=== PATIENT | female | born 1955 | race Two or more races ===

== ENCOUNTER 2024-11-10 08:45 | Outpatient (AMB) | payer MEDICARE, MEDICAID, SELFPAY ==
--- NOTE | 2024-11-10 09:04 | ORTHONT_ITS ---
Vital signs 11/10/24 09:06 Height 1.52 m Height Method Stated Weight 98.004 kg Weight Measurement Method Standing Scale BMI 42.2 BP 153/93 H Blood Pressure Source Automatic Cuff Blood Pressure Location Right Upper Arm Position Sitting Respiration 18 Pulse 85 Pulse Source Monitor Temp 97.9 F Temp Source Temporal Artery Scan Pulse Oximetry (%) 93 L Oxygen Delivery Method Room Air Med/Allergies Allergies & Medications Allergies acetaminophen (From Vicodin) Allergy (Verified 11/10/24 09:10) codeine Allergy (Verified 11/10/24 09:10) hydrocodone (From Vicodin) Allergy (Verified 11/10/24 09:10) Medication Reconciliation Unobtainable 11/10/24 [History Confirmed 11/10/24] Exam Exam Breathing is nonlabored. Patient has a normal mood and affect. Bilateral extremities were evaluated and demonstrates sensation intact to light touch. Palpable pedal pulses are present. No significant edema is present. Bilateral hips were examined. The patient has no pain with log roll of the hips. Internal rotation to 30 degrees and external rotation to 30 degrees is painless. Negative FADIR. Left knee was examined today. The left knee is in reasonable alignment. Range of motion from 0-120 degrees. Knee is stable to varus and valgus as well as AP translation with <5mm. Patient has a negative McMurrays. There is no pain with patellofemoral compression and no crepitus noted. The knee is nontender to palpation. The right knee was also examined. The right knee is in varus alignment. Range of motion from 0-115 degrees. Knee is stable to varus and valgus as well as AP translation with <5mm. Patient has a negative McMurrays. There is no pain with patellofemoral compression and no crepitus noted. The knee is tender to palpation medially. She does have a lot of skin folds from her obesity Assessment and Plan Problem List (1) Arthritis of right knee: Status: Acute Plan: 61-year-old female with severe right knee arthritis of significant severity. We would like better weightbearing x-rays but the previous ones of show complete obliteration of the medial joint space. She would like a right knee injection today. I would like for her to lose weight prior to proceeding with surgery. She just started on zepbound recently Recommend knee cortisone injection as patient would like to proceed with conservative treatment at this time. The risks and benefits of the procedure were reviewed with the patient and patient gave verbal consent to continue with the procedure. Procedure: performed by Dr. Dawn Using sterile technique the Right knee was thoroughly prepped with alcohol, and approximately 1 cc of Kenalog 40 mg/mL and 4 cc of 1% lidocaine was injected without resistance into the medial tibial femoral joint space. The patient tolerated the procedure. Advanced Care Planning Discussion Advance care planning discussed with:: patient Office Procedures GNS Level of Care Nursing/Assessment Patient Status: Initial/New Patient Nursing Assessment/Reassesment: Medication Reconciliation, Update PMH in EMR and Vital Signs Coordination of Care: Complex Care and Chronic Disease 1-5, Education Complex Pt/Fam, Consent,records obtained, informed consent, 1 Ins Authorization, Lab and Imaging orders, Results/Orders obtained and Staff clarify orders Special Needs: Language special needs New Patient Charge New Patient Point Assignment: [id number] New Patient Point Charge: TRANSCRIPT CLERK Level 4 (8158-3165) Surgical Proc/IM SQ injection Major Surgical Procedure: Yes (KNEE INJECTION ) Medication Given Medication Given Medication Given: Yes Documented Dose Given: 4 Route: Infiitration Medication Given Medication Given Medication Given: Yes Documented Dose Given: 1 Route: Infiitration Office Meds Xylocaine 10 mg/mL (1 %) injection solution Performing Provider: Solis Dawn MD Performing Location: [facility] Administered by: Solis Dawn MD on 11/10/24 11:27 Dose Route Admin Location Dispensed Lot Number Expiration Date [facility] [employer] 20 mL Infiltration 20 mL [id number] [facility] triamcinolone acetonide 40 mg/mL suspension for injection Performing Provider: Solis Dawn MD Performing Location: [facility] Administered by: Solis Dawn MD on 11/10/24 11:27 Dose Route Admin Location Dispensed Lot Number Expiration Date [facility] [employer] 40 mg intra-articular RIGHT KNEE 1 mL [id number] 01/19/26 5420-4183-0 1 [employer] [facility] [place] Intake Visit Data Collection New Patient or Established: New Patient (never been to [facility]) Reason for Visit:: RIGHT KNEE OSTEOARTHRITIS Seen by Clinical Staff ONLY (RN/MA): No Court Registry Officer Required: No PCP or OBGYN visit in last 3 months: Yes Hx Now: No Do You Feel Safe at Home: Yes Authorities Contacted: N/A Questionairres Past Medical History Past Medical History Have you ever been diagnosed with any of the following: Cardiology Problems Hypercholesterolemia: Yes Hypertension: Yes Subjective Visit Visit for: new patient, knee (RIGHT) and x-rays Immunization / Flu Flu Vaccine in the Last 12 Months: Yes Flu Vaccine Exclusion Criteria: Already Received History of Present Illness Chief complaint: bilateral knee pain Renu is a pleasant 69-year-old female with bilateral knee pain for years, right worse than left. She has been using a walker for the past month. She has had over 10 injections with little relief. She has tried physical therapy. She has tried meloxicam and Tylenol arthritis. Patient has osteoporosis and has been taking alendronate for over a year. She started Zepbound last Thursday for weight loss. BMI is 42.2%. Personal History Occupation: NONE Pain Pain level (0-10): 8 Pain duration: CONSTANT Pain location: inside (medial), outside (lateral) and anterior Pain quality: sharp, dull and aching Pain timing: night, increases with activity and stairs Associated signs & symptoms: numbness and weakness Ambulatory data Ambulatory device: walker Treatments Number of previous injections: 10 Improvement with previous injections: No Improvement with PT: No Improvement with NSAIDS: no Review of Systems Review of Systems: All systems negative unless otherwise noted in HPI.
[2024-11-10 09:06] VITALS: BP 153/93; PULSE 85; RESP 18; TEMP 36.6; O2SAT 93; BMI 42.2
--- NOTE | 2024-11-10 09:09 | XR_ITS ---
Examination: Bilateral knees 2 views Right lateral knee left lateral knee 2 views Right axial knee left axial knee 2 views TECHNIQUE: Bilateral AP knees standing single view, bilateral PA knees standing single view 30 degrees flexion Standing right lateral knee left lateral knee Right axial knee left axial knee 2 views total 6 views Exam date and time: November 10, 2024 0929 hours INDICATIONS: Bilateral knee pain beginning 2 years ago more severe right knee FINDINGS: Significant osteopenia Severe narrowing [id number] medial joint space right knee Advanced osteoarthritis right patellofemoral joint Small knee effusion Advanced narrowing medial joint space left knee Moderate osteoarthritis lateral patellofemoral joint No fracture involving either knee No patellar dislocation IMPRESSION: Severe narrowing [id number] medial joint space right knee Advanced osteoarthritis right patellofemoral joint Advanced narrowing medial joint space left knee
== END 2024-11-10 09:26 | disposition home or self-care (01) ==
PROVIDERS: PCP Physician Assistant; Referring Provider Physician Assistant; Supervising Provider Orthopaedic Surgery Adult Reconstructive Orthopaedic Surgery; Visit Provider Orthopaedic Surgery Adult Reconstructive Orthopaedic Surgery
DX: M17.11 Unilateral primary osteoarthritis, right knee (principal); M25.862 Other specified joint disorders, left knee; I10 Essential (primary) hypertension; E78.00 Pure hypercholesterolemia, unspecified
CPT/HCPCS: 20610; 73564; 99204; J3301; J3490; G0463

== ENCOUNTER 2025-02-07 09:00 | Outpatient (AMB) | payer MEDICARE, MEDICAID, SELFPAY ==
[2025-02-07 09:17] VITALS: BP 138/84; PULSE 66; RESP 18; TEMP 36.3; O2SAT 98; BMI 39.2
--- NOTE | 2025-02-07 09:17 | ORTHONT_ITS ---
Vital signs 02/07/25 09:17 Height 1.52 m Height Method Stated Weight 90.492 kg Weight Measurement Method Standing Scale BMI 39.2 BP 138/84 H Blood Pressure Source Automatic Cuff Blood Pressure Location Right Upper Arm Position Sitting Respiration 18 Pulse 66 Pulse Source Monitor Temp 97.3 F Temp Source Temporal Artery Scan Pulse Oximetry (%) 98 Oxygen Delivery Method Room Air Med/Allergies Allergies & Medications Allergies acetaminophen (From Vicodin) Allergy (Verified 02/07/25 09:21) codeine Allergy (Verified 02/07/25 09:21) hydrocodone (From Vicodin) Allergy (Verified 02/07/25 09:21) Medication Reconciliation Unobtainable 11/10/24 [History Confirmed 02/07/25] Exam Exam Breathing is nonlabored. Patient has a normal mood and affect. Bilateral extremities were evaluated and demonstrates sensation intact to light touch. Palpable pedal pulses are present. No significant edema is present. Bilateral hips were examined. The patient has no pain with log roll of the hips. Internal rotation to 30 degrees and external rotation to 30 degrees is painless. Negative FADIR. Left knee was examined today. The left knee is in reasonable alignment. Range of motion from 0-120 degrees. Knee is stable to varus and valgus as well as AP translation with <5mm. Patient has a negative McMurrays. There is no pain with patellofemoral compression and no crepitus noted. The knee is nontender to palpation. The right knee was also examined. The right knee is in varus alignment. Range of motion from 0-115 degrees. Knee is stable to varus and valgus as well as AP translation with <5mm. Patient has a negative McMurrays. There is no pain with patellofemoral compression and no crepitus noted. The knee is tender to palpation medially. She does have a lot of skin folds from her obesity Bilateral knee x-rays demonstrate significant joint space narrowing on the right. There is complete obliteration of the medial joint space Assessment and Plan Problem List (1) Arthritis of right knee: Status: Acute Plan: 61-year-old female with severe right knee arthritis of significant severity. X- rays demonstrate significant joint space narrowing medially Bilaterally. We will do a cortisone injection on the left side as this is bothering her. The right side is worse and she would like to get this replaced as she is tried significant weight loss, with over 10 injections and formal physical therapy. Recommend knee cortisone injection as patient would like to proceed with conservative treatment at this time. The risks and benefits of the procedure were reviewed with the patient and patient gave verbal consent to continue with the procedure. Procedure: performed by Dr. Dawn Using sterile technique the left knee was thoroughly prepped with alcohol, and approximately 1 cc of Kenalog 40 mg/mL and 4 cc of 1% lidocaine was injected without resistance into the medial tibial femoral joint space. The patient tolerated the procedure. We will plan for surgery on the right and we are not injecting that side as this will delay surgery The nature and purpose of the total knee replacement, alternative method(s) of treatment, the material risks involved, and the possibility of complications were fully explained to the patient. The patient does NOT have any of the following contraindications to TKA: - Active infection of the knee joint, OR - Active systemic bacteremia, OR - Active skin infection or open wound at surgical site, OR - Neuropathic arthritis, OR - Severe, rapidly progressive neurological disease, OR - Severe medical condition that makes risks of surgery outweigh the potential benefit The patient was told the most common risks and complications associated with a total knee replacement include, but are not limited to: blood clots in the leg, fatal pulmonary embolism, dislocation of the prosthesis, intraoperative and postoperative fractures of the femur or tibia, infection, failure of the prosthesis or grafting materials, complications from anesthesia, reactions to blood transfusions, postoperative leg length inequality, instability of the knee replacement, nerve damage or injury, vascular injury, delayed wound healing, infection, other injury or even . In addition, there are risks associated with anesthesia given during this operation. Also, the patient was told that after undergoing a total knee replacement there may still be persistent pain or disability. The patient was informed that the success of this operation in part depends upon the mechanical devices which are going to be implanted and that these devices can fail or malfunction, and may need to be repaired or replaced and there are no guarantees as to the longevity of this device or its parts and that it or its parts could fail prematurely. The patient was also notified that during the course of surgery, there may be a need to use bone graft from donors, and that any bone graft used will be carefully screened for communicable diseases, including AIDS, hepatitis, Fred-Creutzfeldt, or other diseases, but despite the screening procedures, there is a small chance that they could contract one of these diseases. Finally, the patient was asked to follow completely and fully with all advice and recommended treatments, and that recovery and ultimate outcome are affected by their compliance with recommended treatment. We discussed the risks, benefits and treatment alternatives, and the patient is interested in proceeding with surgery. We will try to set this up as expeditiously as possible. Advanced Care Planning Discussion Advance care planning discussed with:: patient Office Procedures GNS Level of Care Nursing/Assessment Patient Status: Established Patient Nursing Assessment/Reassesment: Medication Reconciliation, Update PMH in EMR and Vital Signs Coordination of Care: Complex Care and Chronic Disease 1-5, Education Complex Pt/Fam, Consent,records obtained, informed consent, Lab and Imaging orders, Results/Orders obtained and Staff clarify orders Established Patient Charge Established Patient Point Assignment: 110 Established Patient Point Charge: EP Level 3 (80-115) Surgical Proc/IM SQ injection Major Surgical Procedure: Yes (KNEE INJECTION ) Medication Given Medication Given Medication Given: Yes Documented Dose Given: 4 Route: Infiitration Medication Given Medication Given Medication Given: Yes Documented Dose Given: 1 Route: Infiitration Office Meds Xylocaine 10 mg/mL (1 %) injection solution Performing Provider: Solis Dawn MD Performing Location: [facility] Administered by: Solis Dawn MD on 02/07/25 10:14 Dose Route Admin Location Dispensed Lot Number Expiration Date [facility] [employer] 20 mL Infiltration 20 mL [id number] [employer] triamcinolone acetonide 40 mg/mL suspension for injection Performing Provider: Solis Dawn MD Performing Location: [facility] Administered by: Solis Dawn MD on 02/07/25 10:14 Dose Route Admin Location Dispensed Lot Number Expiration Date [facility] [employer] 40 mg intra-articular KNEE 1 mL [id number] 08/21/26 8077-7881-60 [facility] [place] Intake Visit Data Collection New Patient or Established: Established Patient (seen at [facility] within 3 years) Reason for Visit:: 3 MONTH KNEE INJECTION Seen by Clinical Staff ONLY (RN/MA): No Verbal consent obtained for Telemed visit?: No 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 Required: Yes PCP or OBGYN visit in last 3 months: Yes Hx Now: No Do You Feel Safe at Home: Yes Authorities Contacted: N/A Questionairres Past Medical History Past Medical History Have you ever been diagnosed with any of the following: Cardiology Problems Hypercholesterolemia: Yes Hypertension: Yes Subjective Visit Visit for: follow up visit and knee Immunization / Flu Flu Vaccine in the Last 12 Months: Yes Flu Vaccine Exclusion Criteria: Already Received History of Present Illness Chief complaint: 3 MONTH FOLLOW UP KNEE INJECTIONS Renu is a pleasant 69-year-old female with bilateral knee pain for years, right worse than left. She has been using a walker for the past month. She has had over 10 injections with little relief. She has tried physical therapy. She has tried meloxicam and Tylenol arthritis. Patient has osteoporosis and has been taking alendronate for over a year. She started Zepbound last Thursday for weight loss. BMI is 39.2. She has been losing weight very rapidly. Personal History Occupation: DISABLED Red flag PMH: BMI BMI Counceling provided: Yes Pain Pain level (0-10): 10 Pain duration: ALL DAY Pain location: inside (medial), outside (lateral), anterior and posterior Pain quality: sharp, dull and aching Pain timing: night, increases with activity and stairs Associated signs & symptoms: weakness Ambulatory data Ambulatory device: walker Treatments Number of previous injections: 10 Improvement with previous injections: Yes Improvement with PT: No Improvement with NSAIDS: no Review of Systems Review of Systems: All systems negative unless otherwise noted in HPI.
== END 2025-02-07 09:53 | disposition home or self-care (01) ==
LOC: HODSRG 09:00
PROVIDERS: PCP Physician Assistant; Referring Provider Physician Assistant; Supervising Provider Orthopaedic Surgery Adult Reconstructive Orthopaedic Surgery; Visit Provider Orthopaedic Surgery Adult Reconstructive Orthopaedic Surgery
DX: M25.562 Pain in left knee (principal); M25.561 Pain in right knee; M17.11 Unilateral primary osteoarthritis, right knee; I10 Essential (primary) hypertension; E78.00 Pure hypercholesterolemia, unspecified
CPT/HCPCS: 20610; 99213; J3301; J3490; G0463

== ENCOUNTER 2025-04-13 10:21 | Outpatient (AMB) | payer MEDICARE, MEDICAID, SELFPAY ==
--- NOTE | 2025-04-13 10:35 | ORTHONT_ITS ---
Vital signs 04/13/25 10:46 Height 1.52 m Height Method Stated Weight 88.025 kg Weight Measurement Method Standing Scale BMI 38.0 BP 138/73 H Blood Pressure Source Automatic Cuff Blood Pressure Location Left Upper Arm Position Sitting Respiration 19 Pulse 158 H Pulse Source Monitor Temp 97.9 F Temp Source Temporal Artery Scan Pulse Oximetry (%) 94 L Oxygen Delivery Method Room Air Med/Allergies Allergies & Medications Allergies acetaminophen (From Vicodin) Allergy (Verified 04/13/25 10:47) codeine Allergy (Verified 04/13/25 10:47) hydrocodone (From Vicodin) Allergy (Verified 04/13/25 10:47) Medication Reconciliation Unobtainable 11/10/24 [History Confirmed 04/13/25] Exam Exam Breathing is nonlabored. Patient has a normal mood and affect. Bilateral extremities were evaluated and demonstrates sensation intact to light touch. Palpable pedal pulses are present. No significant edema is present. Bilateral hips were examined. The patient has no pain with log roll of the hips. Internal rotation to 30 degrees and external rotation to 30 degrees is painless. Negative FADIR. Left knee was examined today. The left knee is in reasonable alignment. Range of motion from 0-120 degrees. Knee is stable to varus and valgus as well as AP translation with <5mm. Patient has a negative McMurrays. There is no pain with p atellofemoral compression and no crepitus noted. The knee is nontender to palpation. The right knee was also examined. The right knee is in varus alignment. Range of motion from 0-115 degrees. Knee is stable to varus and valgus as well as AP translation with <5mm. Patient has a negative McMurrays. There is no pain with patellofemoral compression and no crepitus noted. The knee is tender to palpati on medially. She does have a lot of skin folds from her obesity Bilateral knee x-rays demonstrate significant joint space narrowing on the right. There is complete obliteration of the medial joint space Assessment and Plan Problem List (1) Arthritis of right knee: Status: Acute Plan: 61-year-old female with severe right knee arthritis of significant severity. X- rays demonstrate significant joint space narrowing medially Bilaterally. We will do a cortisone injection on the left side as this is bothering her. The right side is worse and she would like to get this replaced as she is tried significant weight loss, with over 10 injections and formal physical therapy. The nature and purpose of the total knee replacement, alternative method(s) of treatment, the material risks involved, and the possibility of complications were fully explained to the patient. The patient does NOT have any of the following contraindications to TKA: - Active infection of the knee joint, OR - Active systemic bacteremia, OR - Active skin infection or open wound at surgical site, OR - Neuropathic arthritis, OR - Severe, rapidly progressive neurological disease, OR - Severe medical condition that makes risks of surgery outweigh the potential b enefit The patient was told the most common risks and complications associated with a total knee replacement include, but are not limited to: blood clots in the leg, fatal pulmonary embolism, dislocation of the prosthesis, intraoperative and postoperative fractures of the femur or tibia, infection, failure of the prosthesis or grafting materials, complications from anesthesia, reactions to blood transfusions, postoperative leg length inequality, instability of the knee replacement, nerve damage or injury, vascular injury, delayed wound healing, infection, other injury or even . In addition, there are risks associated with anesthesia given during this operation. Also, the patient was told that after undergoing a total knee replacement there may still be persistent pain or disability. The patient was informed that the success of this operation in part depends upon the mechanical devices which are going to be implanted and that these devices can fail or malfunction, and may need to be repaired or replaced and there are no guarantees as to the longevity of this device or its parts and that it or its parts could fail prematurely. The patient was also notified that during the course of surgery, there may be a need to use bone graft from donors, and that any bone graft used will be carefully screened for communicable diseases, including AIDS, hepatitis, Fred-Creutzfeldt, or other diseases, but despite the screening procedures, there is a small chance that they could contract one of these diseases. Finally, the patient was asked to follow completely and fully with all advice and recommended treatments, and that recovery and ultimate outcome are affected by their compliance with recommended treatment. We discussed the risks, benefits and treatment alternatives, and the patient is interested in proceeding with surgery. We will try to set this up as expeditiously as possible. Advanced Care Planning Discussion Advance care planning discussed with:: patient Office Procedures GNS Level of Care Nursing/Assessment Patient Status: Established Patient Nursing Assessment/Reassesment: Medication Reconciliation, Update PMH in EMR and Vital Signs Coordination of Care: Complex Care and Chronic Disease 1-5, Education Complex Pt/Fam, Consent,records obtained, informed consent, Results/Orders obtained and Staff clarify orders Special Needs: Language special needs Established Patient Charge Established Patient Point Assignment: 95 Established Patient Point Charge: EP Level 3 (80-115) MA Intake Visit Data Collection New Patient or Established: Established Patient (seen at [facility] within 3 years) Reason for Visit:: REQ SX/FU MEDICAL AND CARDIAC CLEARANCE Seen by Clinical Staff ONLY (RN/MA): No Verbal consent obtained for Telemed visit?: No Tunneller Required: Yes PCP or OBGYN visit in last 3 months: Yes Hx Now: No Do You Feel Safe at Home: Yes Authorities Contacted: N/A Questionairres Past Medical History Past Medical History Have you ever been diagnosed with any of the following: Cardiology Problems Hypercholesterolemia: Yes Hypertension: Yes Subjective Visit Visit for: follow up visit and knee Immunization / Flu Flu Vaccine in the Last 12 Months: Yes Flu Vaccine Exclusion Criteria: Already Received History of Present Illness Chief complaint: 3 MONTH FOLLOW UP KNEE INJECTIONS Renu is a pleasant 69-year-old female with bilateral knee pain for years, right worse than left. She has been using a walker for the past month. She has had over 10 injections with little relief. She has tried physical therapy. She has tried meloxicam and Tylenol arthritis. Patient has osteoporosis and has been taking alendronate for over a year. She started Zepbound last Thursday for weight loss. BMI is 39.2. Personal History Occupation: DISABLED Red flag PMH: BMI BMI Counceling provided: Yes Pain Pain level (0-10): 10 Pain duration: ALL DAY Pain location: inside (medial), outside (lateral), anterior and posterior Pain quality: sharp, dull and aching Pain timing: night, increases with activity and stairs Associated signs & symptoms: weakness Ambulatory data Ambulatory device: walker Treatments Number of previous injections: 10 Improvement with previous injections: Yes Improvement with PT: No Improvement with NSAIDS: no Review of Systems Review of Systems: All systems negative unless otherwise noted in HPI.
[2025-04-13 10:46] VITALS: BP 138/73; PULSE 158; RESP 19; TEMP 36.6; O2SAT 94; BMI 38.0
== END 2025-04-13 10:48 | disposition home or self-care (01) ==
LOC: HODSRG 10:21
PROVIDERS: PCP Physician Assistant; Referring Provider Physician Assistant; Supervising Provider Orthopaedic Surgery Adult Reconstructive Orthopaedic Surgery; Visit Provider Orthopaedic Surgery Adult Reconstructive Orthopaedic Surgery
DX: M17.11 Unilateral primary osteoarthritis, right knee (principal); M25.562 Pain in left knee; M25.561 Pain in right knee; M81.0 Age-related osteoporosis without current pathological fracture; I10 Essential (primary) hypertension; E78.00 Pure hypercholesterolemia, unspecified; E66.9 Obesity, unspecified; Z71.3 Dietary counseling and surveillance; Z68.38 Body mass index [BMI] 38.0-38.9, adult
CPT/HCPCS: 99213; G0463

== ENCOUNTER → 2025-04-21 | Outpatient (CLI) | payer MEDICARE, MEDICAID, SELFPAY ==
--- NOTE | 2025-04-21 12:00 | XR_ITS ---
Examination: CT right lower extremity, without contrast. 2-D sagittal reconstructions. 2-D coronal reconstructions. 3-D reconstructions. Date and time of exam:April 21, 2025 1321 hours INDICATIONS: Diagnosis unilateral right knee osteoarthritis, knee pain several years CTDI: vol (mGy):33.5 DLP: (mGycm):1369 Technique: Multiple 1.25 mm axial sections of the right lower extremity without intravenous contrast have been obtained. 2-D sagittal and coronal reconstructions have been obtained. 3-D reconstructions have been obtained. Low dose protocols were performed. One or more of the following dose reduction techniques were used; automated exposure control, adjustment of the mA and/or KV according to patient size, use of iterative reconstruction technique. Findings: No right hip fracture or dislocation Mild narrowing right hip joint No avascular necrosis Severe narrowing medial joint space right knee Significant osteoarthritis lateral patellofemoral joints No fractures IMPRESSION: Advanced tricompartment osteoarthritis right knee including severe narrowing medial joint space
== END | disposition home or self-care (01) ==
PROVIDERS: PCP Physician Assistant; Referring Provider Orthopaedic Surgery Adult Reconstructive Orthopaedic Surgery; Visit Provider Orthopaedic Surgery Adult Reconstructive Orthopaedic Surgery
DX: M17.11 Unilateral primary osteoarthritis, right knee (principal); M25.861 Other specified joint disorders, right knee
CPT/HCPCS: 73700

== ENCOUNTER 2025-04-27 08:20 | Day surgery (SDC) | payer MEDICARE, MEDICAID, SELFPAY ==
--- NOTE | 2025-04-21 06:55 | EKG_ITS ---
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
[2025-04-21 09:44] VITALS: BMI 39.3
[2025-04-21 12:06] LABS: Basophils # (Auto) 0.1 Thou/mm3 (0.0-0.2); Basophils % (Auto) 1 % (0-2.5); Eosinophils # (Auto) 0.3 Thou/mm3 (0.0-0.5); Eosinophils % (Auto) 5 % (0-10); Hematocrit 42.0 % (36.0-46.0); Hemoglobin 13.4 g/dL (12.0-16.0); Immature Granulocytes Auto 0.03 Thou/mm3 (0.00-0.00); Lymphocytes # (Auto) 1.6 Thou/mm3 (1.0-4.8); Lymphocytes % (Auto) 26 % (10-50); Mean Corpuscular HGB Conc 31.9 g/dl (31.0-37.0); Mean Corpuscular Hemoglobin 29.3 pg (25.0-35.0); Mean Corpuscular Volume 92 fL (80-100); Monocytes # (Auto) 0.6 Thou/mm3 (0.0-0.8); Monocytes % (Auto) 9 % (0-12); Neutrophils # (Auto) 3.5 Thou/mm3 (1.8-7.7); Neutrophils % (Auto) 59 % (37-80); Nucleated Red Blood Cell # 0.00 Thou/mm3 (0.00-0.00); Nucleated Red Blood Cell % 0 /100 WBC (0); Platelet Count 185 Thou/mm3 (140-440); RDW Standard Deviation 45.7 fL (36.4-46.3); Red Blood Count 4.57 Miln/mm3 (4.00-5.20); White Blood Count 6.0 Thou/mm3 (3.6-11.0)
[2025-04-21 12:15] LABS: Alanine Aminotransferase 15 U/L (10-49); Albumin, Serum 4.4 gm/dL (3.4-4.8); Albumin/Globulin Ratio 1.7 (1.2-2.2); Alkaline Phosphatase 80 U/L (46-116); Anion Gap 10 (7-16); Aspartate Amino Transferase 25 U/L (0-34); BUN/Creatinine Ratio 17 Ratio (12-20); Bilirubin,Total 0.6 mg/dL (0.3-1.2); Blood Urea Nitrogen 15 mg/dL (9-23); Calcium 9.3 mg/dL (8.3-10.6); Calcium (Corrected) 9.3 mg/dL (8.5-10.1); Carbon Dioxide 27.6 mMol/L (20.0-31.0); Chloride 108 mMol/L (98-107); Creatinine (Component) 0.9 mg/dL (0.6-1.3); Estimated Creatinine Clearance 57.9 mL/min (>60); Globulin 2.6 gm/dL (2.3-3.5); Glucose 101 mg/dL (74-106); Osmolality,Calculated 291 (275-295); Potassium 4.8 mMol/L (3.4-5.1); Sodium 146 mMol/L (136-145); Total Protein 7.0 gm/dL (5.7-8.2); eGFR > 60 See Note
[2025-04-21 12:23] LABS: INR 1.0 (0.9-1.3); Partial Thromboplastin Time 28.4 Seconds (22.0-36.0); Prothrombin Time 10.9 Seconds (9.0-12.2)
[2025-04-27] VITALS (13 sets, daily range): BP systolic 134–160; BP diastolic 78–101; PULSE 59–81; RESP 12–20; TEMP 36.1–37.4; O2SAT 95–100; BMI 39.6
[2025-04-27] MEDS: PREGABALIN 75 MG CAPSULE PO (09:05)
[2025-04-27] MEDS: ACETAMINOPHEN 325 MG TABLET 650 MG PO (09:05)
[2025-04-27] MEDS: MELOXICAM 7.5 MG TABLET PO (09:05)
--- NOTE | 2025-04-27 13:58 | PD.SUROPNT ---
Date of Procedure 04/27/25 Pre Op Diagnosis right knee osteoarthritis Post Op Diagnosis right knee osteoarthritis Procedure right total knee replacement Findings full thickness cartilage loss and osteophytes Procedure Description Indication: The patient is a 69 year old who has a long history of right knee pain. X-rays show degenerative arthritis involving the knee. Over the past several years the patient has had increasing pain, progressive limitation in function. He has failed conservative measures including activity modification, physical therapy, injections, anti-inflammatories, and assistive devices. After a lengthy discussion of the risks and benefits, the patient presents now for total knee replacement. The nature and purpose of the total knee replacement, alternative method(s) of treatment, the material risks involved, and the possibility of complications were fully explained to the patient. The patient was told the most common risks and complications associated with a total knee replacement include, but are not limited to blood clots in the leg, fatal pulmonary embolism, dislocation of the prosthesis, intraoperative and postoperative fractures of the femur or tibia, infection, failure of the prosthesis or grafting materials, complications from anesthesia, reactions to blood transfusions, postoperative leg length inequality, instability of the knee replacement, nerve damage or injury, vascular injury, delayed wound healing, infections, other injury or even . In addition, there are risks associated with anesthesia given during this operation, temporary or permanent numbness on the skin lateral to the incision can be a complication unique to total knee surgery, and kneeling can be painful after knee replacement surgery. Also, the patient was told that after undergoing a total knee replacement there may still be pain or disability. We discussed with the patient that we will be using a robot-assisted technology. We discussed that there is a possibility of converting to manual instrumentation. The patient was informed that the success of this operation in part depends upon the mechanical devices which are going to be implanted and that these devices can fail or malfunction, and may need to be repaired or replaced and there are no guarantees as to the longevity of this device or its part and that it or its parts could fail prematurely. Finally, the patient was asked to follow completely and fully with all advice and recommended treatments, and that recovery and ultimate outcome are affected by their compliance with recommended treatment. Surgical technique: Patient was marked and consented in the pre-operative area. The patient was brought to the operating room and placed on the operating table in a supine position. Prior to positioning, a timeout procedure was performed between the surgeon, the anesthesiologist, and the nursing staff where the patient and the operative side were identified and confirmed. After adequate general anesthetic was obtained, the right lower extremity was prepped and draped in the usual sterile fashion. A weight based dose of Cefazolin were administered within 1 hour prior to incision. The robot was preregistered and calirated before the incision. The extremity was exsanguinated with an esmarch badge and tourniquet inflated to 250mmHg. A midline incision was made. A median parapatellar arthrotomy was made. The patella was subluxed laterally. A medial release was performed to expose the medial tibia. His femoral and tibial pins were placed through an intra incisional manner for both cases. Every effort was made to ensure that the distalmost aspect of the pin was hung in the second cortex. The arrays were then tightened several times to ensure that it was fixed for the remainder of the case. Both femoral and tibial checkpoints were then placed. We then went through the registration process of the bone. We then assessed the knee deformity and attempted to correct it. We also used the robot to aid in judging laxity in both extension and flexion. Final based on laxity and alignment we changed the preoperative assessment to obtain proper proper implant positioning and to correct deformity. Attention was then placed to the tibia. We made a tibial cut using the robot ensuring that both the MCL and the patella tendon were protected with retractors. We then went to the femur and made the posterior cut followed by the anterior cut and the anterior chamfer. The bone was then removed and we made a distal femur cut and a posterior chamfer cut. We verified all cuts. A trial reduction was performed with a size 3 femoral component and a size 3 keeled tibial component. The patella tracked centrally, and no lateral retinacular release was necessary. The trial implants were removed. The arrays, pins, and checkpoints were all removed. We performed a verification that all pins were removed. The cut bone surfaces were lavaged. A size 3 right femoral component, a size 3 keeled tibial component were impacted into position. The knee was felt to be well balanced in the sagittal and coronal plane. The final 3x13 mm cruciate-substituting articular insert was impacted into the tibial tray. The knee was brought out to full extension, flexed up to 120 degrees. It was stable to varus and valgus stress and appropriately balanced in flexion and extension. The wounds were copiously irrigated following deflation of tourniquet. The medial retinaculum was reapproximated with #1 vicryl and quill. The subcutaneous tissues were closed with 0 and 2-0 interrupted Vicryl. The skin was closed with 3-0 Monofilament V loc suture. A sterile dressing was applied. The patient was transferred to a bed and brought to recovery in stable condition. The patient tolerated the procedure well. There were no intraoperative complications. Sponge and needle counts were correct times 2. As the attending surgeon, Paula cooper I was present and performed the entire operation. Grafts/Implants Size 3 CR Femur Size 3 Tibia 13mm poly CS Anesthesia MAC Implants angela Pathology / specimen None Pathology comment: none Estimated Blood Loss 150 Condition Stable Disposition same day Surgeon Solis Dawn MD Surgical Staff Operation Date: 04/27/25 13:45 Case Staff PHOTOGRAPHIC HAND DEVELOPER: Anna Flores RN First Assistant: Jes Medrano
--- NOTE | 2025-04-27 14:04 | XR_ITS ---
Examination: Right knee 2 views Technique one AP lateral right knee 2 views Date and time: April 27, 2025 1450 hours INDICATIONS: Postop right knee replacement today. FINDINGS: Total right knee arthroplasty. Satisfactory alignment. Moderate osteopenia. IMPRESSION: Total right knee arthroplasty with satisfactory alignment
--- NOTE | 2025-04-27 14:25 | SUR.PHASEI ---
1425 Patient arrived to recovery resting comfortably in [facility], on oxygen 3L via oxy mask, drowsy and talking with staff, breathing unlabored, vital signs stable, denies pain and nausea, dressing intact to right knee; prineo, telfa, abd, webril, sekou wraps, no bleeding noted, post spinal anesthesia assessment via ice, patient has dermatome sensation at L3-thigh, will continue to monitor, patient has good circulation to right lower extremity; skin color normal for patient and warm to touch, bilateral dorsalis pedis pulses present when palpated, report received from Edwina JUSTICE and Lenny ALMAZAN
[2025-04-27] MEDS: oxyCODONE HCL 5 MG IR TAB PO (15:50)
--- NOTE | 2025-04-27 16:11 | SUR.PHASEII ---
1611 post spinal anesthesia assessment complete, patient has dermatome sensation at S2, will notifiy PT
--- NOTE | 2025-04-27 16:34 | SUR.PHASEII ---
1634 Report given to Chantelle RN, patient awake and alert, breathing unlabored, vital signs stable, per patient her pain is tolerable, dressing intact; no bleeding noted, drinking fluids; denies nausea, patients son and daughter at beside, Johnnie PT at bedside ad will start PT with patient
--- NOTE | 2025-04-27 16:50 | SUR.PHASEII ---
Pt. up walking with walker with assistance of Johnnie physical therapist.
--- NOTE | 2025-04-27 17:30 | SUR.PHASEII ---
Pt. meets criteria for discharge, VSS, no c/o pain or nausea at this time, IV discontinued without complications, dressing to right knee CDI, pt. signed off by physical therapy, pt. has voided. Discharge instructions provided to pt. and pt.'s son and daughter, verbalized understanding. Pt. escorted to vehicle via w/c with all of belongings by staff.
== END 2025-04-27 17:30 | disposition home or self-care (01) ==
PROVIDERS: Anesthesiology; PCP Physician Assistant; Referring Provider Orthopaedic Surgery Adult Reconstructive Orthopaedic Surgery; Visit Provider Orthopaedic Surgery Adult Reconstructive Orthopaedic Surgery
PROC: (CPT 27447; principal; 2025-04-27 13:30)
DX: M17.11 Unilateral primary osteoarthritis, right knee (principal); M25.761 Osteophyte, right knee; Z01.810 Encounter for preprocedural cardiovascular examination; R94.31 Abnormal electrocardiogram [ECG] [EKG]
CPT/HCPCS: 27447; 20985; 36415; 73560; 80053; 85025; 85610; 85730; 93005; 97162; A4217; C1713; C1776; J0690; J2704; J2795; J3010; J3490; J7999; A4648; A4649; A9270

== ENCOUNTER 2025-05-12 12:58 | Outpatient (AMB) | payer MEDICARE, MEDICAID, SELFPAY ==
--- NOTE | 2025-05-12 13:12 | ORTHONT_ITS ---
Vital signs 05/12/25 13:13 Height 1.49 m Height Method Measured Weight 88.621 kg Weight Measurement Method Standing Scale BMI 39.9 BP 136/85 H Blood Pressure Source Automatic Cuff Blood Pressure Location Left Upper Arm Position Sitting Respiration 18 Pulse 95 Pulse Source Monitor Temp 97.6 F Temp Source Temporal Artery Scan Pulse Oximetry (%) 92 L Oxygen Delivery Method Room Air Med/Allergies Allergies & Medications Allergies codeine Allergy (Verified 04/27/25 08:54) hydrocodone (From Vicodin) Allergy (Verified 04/27/25 18:14) Medication Reconciliation alendronate 35 mg tablet 35 mg PO QWEEK 04/21/25 [History Confirmed 05/12/25] amlodipine 5 mg tablet 5 mg PO DAILY 04/21/25 [History Confirmed 05/12/25] atorvastatin 20 mg tablet 20 mg PO QDAY 04/21/25 [History Confirmed 05/12/25] meloxicam 15 mg tablet 15 mg PO DAILY 04/21/25 [History Confirmed 05/12/25] tirzepatide (weight loss) 2.5 mg/0.5 mL subcutaneous pen injector (Zepbound) 2.5 mg subcut QWEEK 04/21/25 [History Confirmed 05/12/25] acetaminophen 500 mg tablet (Acetaminophen Extra Strength) 1,000 mg (2 x 500 mg) PO Q6H PRN pain #90 tabs 04/27/25 [Rx Confirmed 05/12/25] aspirin 81 mg tablet,delayed release 81 mg PO BID #60 tabs 04/27/25 [Rx Confirmed 05/12/25] doxycycline hyclate 100 mg tablet 100 mg PO BID #14 tabs 04/27/25 [Rx Confirmed 05/12/25] gabapentin 300 mg capsule 300 mg PO .qhs #30 caps 04/27/25 [Rx Confirmed 05/12/25] sennosides 8.6 mg-docusate sodium 50 mg tablet (Senna-S) 1 tab-cap PO QDAY #30 tabs 04/27/25 [Rx Confirmed 05/12/25] ondansetron 4 mg disintegrating tablet 4 mg PO Q8H PRN nausea and vomiting #10 tabs 04/28/25 [Rx Confirmed 05/12/25] pantoprazole 40 mg tablet,delayed release 40 mg PO QDAY #14 tabs 04/28/25 [Rx Confirmed 05/12/25] oxycodone 5 mg tablet 5 mg PO Q6H PRN pain #28 tabs 05/08/25 [Rx Confirmed 05/12/25] Exam Exam Breathing is nonlabored. Patient has a normal mood and affect. Bilateral extremities were evaluated and demonstrates sensation intact to light touch. Palpable pedal pulses are present. No significant edema is present. Bilateral hips were examined. The patient has no pain with log roll of the hips. Internal rotation to 30 degrees and external rotation to 30 degrees is painless. Negative FADIR. Left knee was examined today. The left knee is in reasonable alignment. Range of motion from 0-120 degrees. Knee is stable to varus and valgus as well as AP translation with <5mm. Patient has a negative McMurrays. There is no pain with patellofemoral compression and no crepitus noted. The knee is nontender to palpation. Right knee incisions clean dry and intact. Left knee is in valgus alignment. Assessment and Plan Problem List (1) Arthritis of right knee: Status: Acute Plan: 61-year-old female with severe right knee arthritis of significant severity. She is status post right total knee replacement is doing well. She would like a left knee injection today. She does have arthritis of the left knee Recommend knee cortisone injection as patient would like to proceed with conservative treatment at this time. The risks and benefits of the procedure were reviewed with the patient and patient gave verbal consent to continue with the procedure. Procedure: performed by Dr. Dawn Using sterile technique the left knee was thoroughly prepped with alcohol, and approximately 1 cc of Depo-Medrol 80mg/mL and 4 cc of 0.2% ropivacaine was injected without resistance into the medial tibial femoral joint space. The patient tolerated the procedure. Advanced Care Planning Discussion Advance care planning discussed with:: patient Office Procedures GNS Level of Care Nursing/Assessment Patient Status: Established Patient Nursing Assessment/Reassesment: Medication Reconciliation, Orthostatic Vitals, Update PMH in EMR and Vital Signs Coordination of Care: Complex Care and Chronic Disease 1-5, Education Complex Pt/Fam, Consent,records obtained, informed consent, Results/Orders obtained and Staff clarify orders Special Needs: Language special needs Established Patient Charge Established Patient Point Assignment: 105 Established Patient Point Charge: EP Level 3 (80-115) Surgical Proc/IM SQ injection Major Surgical Procedure: Yes (LEFT KNEE INJECTION) Medication Given Medication Given Medication Given: Yes Documented Dose Given: 1 Route: Infiitration Medication Given Medication Given Medication Given: Yes Documented Dose Given: 4 Route: Infiitration Office Meds methylprednisolone acetate 80 mg/mL suspension for injection Performing Provider: Solis Dawn MD Performing Location: [facility] Administered by: Solis Dawn MD on 05/12/25 13:06 Dose Route Admin Location Dispensed Lot Number Expiration Date [facility] [employer] 80 mg intra-articular KNEE 1 mL [id number] 10/21/26 6431-8484-53 PH [id number] ropivacaine (PF) 2 mg/mL (0.2 %) injection solution Performing Provider: Solis Dawn MD Performing Location: [facility] Administered by: Solis Dawn MD on 05/12/25 13:06 Dose Route Admin Location Dispensed Lot Number Expiration Date [facility] [employer] 20 mL Infiltration KNEE 20 mL [id number] 07/21/26 60485-996-16 [facility] Intake Visit Data Collection New Patient or Established: Established Patient (seen at [facility] within 3 years) Reason for Visit:: 3 MONTH F/U RIGHT TKA Seen by Clinical Staff ONLY (RN/MA): No Verbal consent obtained for Telemed visit?: No Vehicle Technician Required: Yes PCP or OBGYN visit in last 3 months: Yes Hx Now: No Do You Feel Safe at Home: Yes Authorities Contacted: N/A Questionairres Past Medical History Past Medical History Have you ever been diagnosed with any of the following: Neurological Problems Seizures: No Cardiology Problems Hypercholesterolemia: Yes Congestive Heart Failure: No Hypertension: Yes Respiratory Problems Chronic Obstructive Pulmonary Disease (COPD): No Stomache/Intestinal Problems Hepatitis: No Cirrhosis: Yes Obesity: Yes Genital/Urinary Problems Renal Disease: No Reproductive Problems Previous Pregnancies: Yes Musculoskeletal Problems Arthritis: Yes Endocrine Problems Diabetes Mellitus Type 1: No Diabetes Mellitus Type 2: No Other Problems Hospitalization: No Shingles: Yes Falls: Yes Blood Transfusions: No Blood Transfusion Reaction: No Anesthesia Reactions: No Chicken Pox: Yes Cancer: No Subjective Visit Visit for: follow up visit and knee Immunization / Flu Flu Vaccine in the Last 12 Months: Yes Flu Vaccine Exclusion Criteria: Already Received History of Present Illness Chief complaint: 3 MONTH FOLLOW UP LEFT KNEE INJECTIONS Renu is a pleasant 69-year-old female with bilateral knee pain for years, right worse than left. She is 2 weeks status post right total knee replacement is doing well. She would like a left knee injection today Personal History Occupation: DISABLED Red flag PMH: BMI BMI Counceling provided: Yes Pain Pain level (0-10): 6 Pain duration: ALL DAY Pain location: inside (medial), outside (lateral), anterior and posterior Pain quality: sharp, dull and aching Pain timing: night, increases with activity and stairs Associated signs & symptoms: weakness Ambulatory data Ambulatory device: walker Treatments Number of previous injections: 10 Improvement with previous injections: Yes Improvement with PT: No Improvement with NSAIDS: no Review of Systems Review of Systems: All systems negative unless otherwise noted in HPI.
[2025-05-12 13:13] VITALS: BP 136/85; PULSE 95; RESP 18; TEMP 36.4; O2SAT 92; BMI 39.9
== END 2025-05-12 13:31 | disposition home or self-care (01) ==
LOC: HODSRG 12:58
PROVIDERS: PCP Physician Assistant; Referring Provider Physician Assistant; Supervising Provider Orthopaedic Surgery Adult Reconstructive Orthopaedic Surgery; Visit Provider Orthopaedic Surgery Adult Reconstructive Orthopaedic Surgery
DX: M25.562 Pain in left knee (principal); M25.561 Pain in right knee; M17.11 Unilateral primary osteoarthritis, right knee; Z96.651 Presence of right artificial knee joint; I10 Essential (primary) hypertension; E78.00 Pure hypercholesterolemia, unspecified; K74.60 Unspecified cirrhosis of liver; E66.9 Obesity, unspecified; Z71.3 Dietary counseling and surveillance; Z68.39 Body mass index [BMI] 39.0-39.9, adult
CPT/HCPCS: 20610; 99213; J1010; J2795; G0463

== ENCOUNTER 2025-06-13 14:59 | Outpatient (AMB) | payer MEDICARE, MEDICAID, SELFPAY ==
--- NOTE | 2025-06-13 15:15 | PD.ORTHCLVIS ---
Vital signs 06/13/25 15:16 Height 1.49 m Height Method Measured Weight 84.935 kg Weight Measurement Method Standing Scale BMI 38.2 BP 167/116 H Blood Pressure Source Automatic Cuff Blood Pressure Location Left Upper Arm Position Sitting Respiration 18 Pulse 65 Pulse Source Monitor Temp 98.2 F Temp Source Temporal Artery Scan Pulse Oximetry (%) 94 L Oxygen Delivery Method Room Air Med/Allergies Allergies & Medications Allergies codeine Allergy (Verified 06/13/25 15:17) hydrocodone (From Vicodin) Allergy (Verified 06/13/25 15:17) Medication Reconciliation alendronate 35 mg tablet 35 mg PO QWEEK 04/21/25 [History Confirmed 06/13/25] amlodipine 5 mg tablet 5 mg PO DAILY 04/21/25 [History Confirmed 06/13/25] atorvastatin 20 mg tablet 20 mg PO QDAY 04/21/25 [History Confirmed 06/13/25] meloxicam 15 mg tablet 15 mg PO DAILY 04/21/25 [History Confirmed 06/13/25] tirzepatide (weight loss) 2.5 mg/0.5 mL subcutaneous pen injector (Zepbound) 2.5 mg subcut QWEEK 04/21/25 [History Confirmed 06/13/25] aspirin 81 mg tablet,delayed release 81 mg PO BID #60 tabs 04/27/25 [Rx Confirmed 06/13/25] doxycycline hyclate 100 mg tablet 100 mg PO BID #14 tabs 04/27/25 [Rx Confirmed 06/13/25] gabapentin 300 mg capsule 300 mg PO .qhs #30 caps 04/27/25 [Rx Confirmed 06/13/25] sennosides 8.6 mg-docusate sodium 50 mg tablet (Senna-S) 1 tab-cap PO QDAY #30 tabs 04/27/25 [Rx Confirmed 06/13/25] ondansetron 4 mg disintegrating tablet 4 mg PO Q8H PRN nausea and vomiting #10 tabs 04/28/25 [Rx Confirmed 06/13/25] pantoprazole 40 mg tablet,delayed release 40 mg PO QDAY #14 tabs 04/28/25 [Rx Confirmed 06/13/25] oxycodone 5 mg tablet 5 mg PO Q6H PRN pain #28 tabs 05/08/25 [Rx Confirmed 06/13/25] acetaminophen 500 mg tablet (Acetaminophen Extra Strength) 1,000 mg (2 x 500 mg) PO Q6H PRN pain #90 tabs 06/13/25 [Rx] Exam Exam Breathing is nonlabored. Patient has a normal mood and affect. Bilateral extremities were evaluated and demonstrates sensation intact to light touch. Palpable pedal pulses are present. No significant edema is present. Bilateral hips were examined. The patient has no pain with log roll of the hips. Internal rotation to 30 degrees and external rotation to 30 degrees is painless. Negative FADIR. Left knee was examined today. The left knee is in reasonable alignment. Range of motion from 0-120 degrees. Knee is stable to varus and valgus as well as AP translation with <5mm. Patient has a negative McMurrays. There is no pain with patellofemoral compression and no crepitus noted. The knee is nontender to palpation. Right knee incisions clean dry and intact. ROM 0-95 degrees. Left knee is in valgus alignment. Assessment and Plan Problem List (1) Arthritis of right knee: Status: Acute Plan: 61-year-old female with severe right knee arthritis of significant severity. She is status post right total knee replacement is doing well. We recommend continued physical therapy for the left knee. Her pain continues to improve. She should work on her range of motion aggressively. We will see her back in approximately 4 to 6 weeks Advanced Care Planning Discussion Advance care planning discussed with:: patient Office Procedures GNS Level of Care Nursing/Assessment Patient Status: Established Patient Nursing Assessment/Reassesment: Medication Reconciliation, Update PMH in EMR and Vital Signs Coordination of Care: Complex Care and Chronic Disease 1-5, Education Complex Pt/Fam, Consent,records obtained, informed consent, Results/Orders obtained and Staff clarify orders Established Patient Charge Established Patient Point Assignment: 95 Established Patient Point Charge: EP Level 3 (80-115) MA Intake Visit Data Collection New Patient or Established: Established Patient (seen at [facility] within 3 years) Reason for Visit:: RIGHT TKA 6 WEEK F/U Seen by Clinical Staff ONLY (RN/MA): No Verbal consent obtained for Telemed visit?: No Golf Ball Molder Required: Yes PCP or OBGYN visit in last 3 months: Yes Hx Now: No Do You Feel Safe at Home: Yes Authorities Contacted: N/A Questionairres Past Medical History Past Medical History Have you ever been diagnosed with any of the following: Neurological Problems Seizures: No Cardiology Problems Hypercholesterolemia: Yes Congestive Heart Failure: No Hypertension: Yes Respiratory Problems Chronic Obstructive Pulmonary Disease (COPD): No Stomache/Intestinal Problems Hepatitis: No Cirrhosis: Yes Obesity: Yes Genital/Urinary Problems Renal Disease: No Reproductive Problems Previous Pregnancies: Yes Musculoskeletal Problems Arthritis: Yes Endocrine Problems Diabetes Mellitus Type 1: No Diabetes Mellitus Type 2: No Other Problems Hospitalization: No Shingles: Yes Falls: Yes Blood Transfusions: No Blood Transfusion Reaction: No Anesthesia Reactions: No Chicken Pox: Yes Cancer: No Subjective Visit Visit for: follow up visit and knee Immunization / Flu Flu Vaccine in the Last 12 Months: Yes Flu Vaccine Exclusion Criteria: Already Received History of Present Illness Chief complaint: RIGHT TKA 6 WEEK F/U Renu is a pleasant 69-year-old female with bilateral knee pain for years, right worse than left. She is 6 weeks status post right total knee replacement is doing well. Personal History Occupation: DISABLED Red flag PMH: BMI BMI Counceling provided: Yes Pain Pain level (0-10): 6 Pain duration: ALL DAY Pain location: inside (medial), outside (lateral), anterior and posterior Pain quality: sharp, dull and aching Pain timing: night, increases with activity and stairs Associated signs & symptoms: weakness Ambulatory data Ambulatory device: walker Treatments Number of previous injections: 10 Improvement with previous injections: Yes Improvement with PT: No Improvement with NSAIDS: no Review of Systems Review of Systems: All systems negative unless otherwise noted in HPI.
[2025-06-13 15:16] VITALS: BP 167/116; PULSE 65; RESP 18; TEMP 36.8; O2SAT 94; BMI 38.2
--- NOTE | 2025-06-13 15:25 | XR_ITS ---
Examination: Bilateral AP knees single view Right knee PA lateral axial 3 views TECHNIQUE: Bilateral AP knees standing single view Right knee PA flexion standing, standing lateral, axial right knee 3 views total 4 views Date and time: June 13, 2025 1534 hours INDICATIONS: Knee surgery April 26, 2025 with right knee pain 2 months. FINDINGS: Moderate osteopenia Total right knee arthroplasty. Satisfactory alignment. No fracture. No patellar dislocation. No loosening of the prosthetic components. Moderate to advanced narrowing medial joint space left knee IMPRESSION: Total right knee arthroplasty with satisfactory alignment
== END 2025-06-13 15:31 | disposition home or self-care (01) ==
LOC: HODSRG 14:59
PROVIDERS: PCP Physician Assistant; Referring Provider Physician Assistant; Supervising Provider Orthopaedic Surgery Adult Reconstructive Orthopaedic Surgery; Visit Provider Orthopaedic Surgery Adult Reconstructive Orthopaedic Surgery
DX: M17.11 Unilateral primary osteoarthritis, right knee (principal); M25.562 Pain in left knee; M25.561 Pain in right knee; Z96.651 Presence of right artificial knee joint; I10 Essential (primary) hypertension; E78.00 Pure hypercholesterolemia, unspecified; K74.60 Unspecified cirrhosis of liver; E66.9 Obesity, unspecified; Z71.3 Dietary counseling and surveillance; Z68.38 Body mass index [BMI] 38.0-38.9, adult
CPT/HCPCS: 73564; 99213; G0463

== ENCOUNTER 2025-07-18 13:05 | Outpatient (AMB) | payer MEDICARE, MEDICAID, SELFPAY ==
--- NOTE | 2025-07-18 13:39 | ORTHONT_ITS ---
Vital signs 07/18/25 13:40 Height 1.49 m Height Method Stated Weight 85.049 kg Weight Measurement Method Standing Scale BMI 38.2 BP 131/86 H Blood Pressure Source Automatic Cuff Blood Pressure Location Left Upper Arm Position Sitting Respiration 18 Pulse 77 Pulse Source Monitor Temp 98.0 F Temp Source Temporal Artery Scan Pulse Oximetry (%) 95 Oxygen Delivery Method Room Air Med/Allergies Allergies & Medications Allergies codeine Allergy (Verified 07/18/25 13:41) hydrocodone (From Vicodin) Allergy (Verified 07/18/25 13:41) Medication Reconciliation alendronate 35 mg tablet 35 mg PO QWEEK 04/21/25 [History Confirmed 07/18/25] amlodipine 5 mg tablet 5 mg PO DAILY 04/21/25 [History Confirmed 07/18/25] atorvastatin 20 mg tablet 20 mg PO QDAY 04/21/25 [History Confirmed 07/18/25] meloxicam 15 mg tablet 15 mg PO DAILY 04/21/25 [History Confirmed 07/18/25] tirzepatide (weight loss) 2.5 mg/0.5 mL subcutaneous pen injector (Zepbound) 2.5 mg subcut QWEEK 04/21/25 [History Confirmed 07/18/25] aspirin 81 mg tablet,delayed release 81 mg PO BID #60 tabs 04/27/25 [Rx Confirmed 07/18/25] doxycycline hyclate 100 mg tablet 100 mg PO BID #14 tabs 04/27/25 [Rx Confirmed 07/18/25] gabapentin 300 mg capsule 300 mg PO .qhs #30 caps 04/27/25 [Rx Confirmed 07/18/25] sennosides 8.6 mg-docusate sodium 50 mg tablet (Senna-S) 1 tab-cap PO QDAY #30 tabs 04/27/25 [Rx Confirmed 07/18/25] ondansetron 4 mg disintegrating tablet 4 mg PO Q8H PRN nausea and vomiting #10 tabs 04/28/25 [Rx Confirmed 07/18/25] pantoprazole 40 mg tablet,delayed release 40 mg PO QDAY #14 tabs 04/28/25 [Rx Confirmed 07/18/25] oxycodone 5 mg tablet 5 mg PO Q6H PRN pain #28 tabs 05/08/25 [Rx Confirmed 07/18/25] acetaminophen 500 mg tablet (Acetaminophen Extra Strength) 1,000 mg (2 x 500 mg) PO Q6H PRN pain #90 tabs 06/13/25 [Rx Confirmed 07/18/25] Exam Exam Breathing is nonlabored. Patient has a normal mood and affect. Bilateral extremities were evaluated and demonstrates sensation intact to light touch. Palpable pedal pulses are present. No significant edema is present. Bilateral hips were examined. The patient has no pain with log roll of the hips. Internal rotation to 30 degrees and external rotation to 30 degrees is painless. Negative FADIR. Left knee was examined today. The left knee is in reasonable alignment. Range of motion from 0-120 degrees. Knee is stable to varus and valgus as well as AP translation with <5mm. Patient has a negative Mc[place]rays. There is no pain with patellofemoral compression and no crepitus noted. The knee is nontender to palpation. Right knee incisions clean dry and intact. ROM 0-95 degrees. Left knee is in valgus alignment. Assessment and Plan Problem List (1) Arthritis of right knee: Status: Acute Plan: 61-year-old female with severe right knee arthritis of significant severity. She is status post right total knee replacement is doing well. She has left knee arthritis and would like a left knee injection today (2) Arthritis of knee, left: Status: Acute Plan: Recommend knee cortisone injection as patient would like to proceed with conservative treatment at this time. The risks and benefits of the procedure were reviewed with the patient and patient gave verbal consent to continue with the procedure. Procedure: performed by Dr. Dawn Using sterile technique the left knee was thoroughly prepped with alcohol, and approximately 1 cc of Depo-Medrol 80mg/mL and 4 cc of 0.2% ropivacaine was injected without resistance into the medial tibial femoral joint space. The patient tolerated the procedure. Advanced Care Planning Discussion Advance care planning discussed with:: patient Office Procedures GNS Level of Care Nursing/Assessment Patient Status: Established Patient Nursing Assessment/Reassesment: Medication Reconciliation, Update PMH in EMR and Vital Signs Coordination of Care: Complex Care and Chronic Disease 1-5, Education Complex Pt/Fam, Consent,records obtained, informed consent, Results/Orders obtained and Staff clarify orders Special Needs: Language special needs Established Patient Charge Established Patient Point Assignment: 95 Established Patient Point Charge: EP Level 3 (80-115) Surgical Proc/IM SQ injection Minor Surgical Procedure: Yes (LEFT KNEE INJECTION) Medication Given Medication Given Medication Given: Yes Documented Dose Given: 1 Route: Infiitration Medication Given Medication Given Medication Given: Yes Documented Dose Given: 4 Route: Infiitration Office Meds methylprednisolone acetate 80 mg/mL suspension for injection Performing Provider: Solis Dawn MD Performing Location: [facility] Administered by: Solis Dawn MD on 07/18/25 13:47 Dose Route Admin Location Dispensed Lot Number Expiration Date Pack age [facility] [employer] Dis[employer] 80 mg intra-articular 1 mL [id number] 03/20/27 [address]-4 [id number] [employer] ropivacaine (PF) 2 mg/mL (0.2 %) injection solution Performing Provider: Solis Dawn MD [facility] Administered by: Solis Dawn MD on 07/18/25 13:47 Dose Route Admin Location Dispensed Lot Number Expiration Date Pack age [facility] [employer] 20 mL Infiltration 20 mL [id number] 10/20/27 32233-725-15 [id number] [facility] Intake Visit Data Collection New Patient or Established: Established Patient (seen at [facility] within 3 years) Reason for Visit:: RIGHT TKA 6 WEEK F/U Seen by Clinical Staff ONLY (RN/MA): No Verbal consent obtained for Telemed visit?: No Pier Hand Helper Required: Yes PCP or OBGYN visit in last 3 months: Yes Hx Now: No Do You Feel Safe at Home: Yes Authorities Contacted: N/A Questionairres Past Medical History Past Medical History Have you ever been diagnosed with any of the following: Neurological Problems Seizures: No Cardiology Problems Hypercholesterolemia: Yes Congestive Heart Failure: No Hypertension: Yes Respiratory Problems Chronic Obstructive Pulmonary Disease (COPD): No Stomache/Intestinal Problems Hepatitis: No Cirrhosis: Yes Obesity: Yes Genital/Urinary Problems Renal Disease: No Reproductive Problems Previous Pregnancies: Yes Musculoskeletal Problems Arthritis: Yes Endocrine Problems Diabetes Mellitus Type 1: No Diabetes Mellitus Type 2: No Other Problems Hospitalization: No Shingles: Yes Falls: Yes Blood Transfusions: No Blood Transfusion Reaction: No Anesthesia Reactions: No Chicken Pox: Yes Cancer: No Subjective Visit Visit for: follow up visit and knee Immunization / Flu Flu Vaccine in the Last 12 Months: Yes Flu Vaccine Exclusion Criteria: Already Received History of Present Illness Chief complaint: RIGHT TKA 6 WEEK F/U L KNEE INJ Renu is a pleasant 69-year-old female with bilateral knee pain for years, right worse than left. She is 8 weeks status post right total knee replacement is doing well. Personal History Occupation: DISABLED Red flag PMH: BMI BMI Counceling provided: Yes Pain Pain level (0-10): 6 Pain duration: ALL DAY Pain location: inside (medial), outside (lateral), anterior and posterior Pain quality: sharp, dull and aching Pain timing: night, increases with activity and stairs Associated signs & symptoms: weakness Ambulatory data Ambulatory device: walker Treatments Number of previous injections: 10 Improvement with previous injections: Yes Improvement with PT: No Improvement with NSAIDS: no Review of Systems Review of Systems: All systems negative unless otherwise noted in HPI.
[2025-07-18 13:40] VITALS: BP 131/86; PULSE 77; RESP 18; TEMP 36.7; O2SAT 95; BMI 38.2
== END 2025-07-18 13:44 | disposition home or self-care (01) ==
LOC: HODSRG 13:05
PROVIDERS: PCP Physician Assistant; Referring Provider Physician Assistant; Supervising Provider Orthopaedic Surgery Adult Reconstructive Orthopaedic Surgery; Visit Provider Orthopaedic Surgery Adult Reconstructive Orthopaedic Surgery
DX: Z47.1 Aftercare following joint replacement surgery (principal); Z96.651 Presence of right artificial knee joint; M25.562 Pain in left knee; M25.561 Pain in right knee; M17.12 Unilateral primary osteoarthritis, left knee; I10 Essential (primary) hypertension
CPT/HCPCS: 20610; 99213; J1010; J2795; G0463